=== PATIENT | female | born 1950 | race Caucasian/White ===

== ENCOUNTER 2018-07-23 16:58 | Inpatient (IN) ==
[2018-07-23] MEDS ORDERED: ACETAMINOPHEN 325 MG TABLET PO ONE (17:26)
[2018-07-23] MEDS ORDERED: NORMAL SALINE 1,000 ML IV ONE (17:26)
[2018-07-23 17:47] LABS: Hematocrit 38.8 % (37.0-47.0); Hemoglobin 12.1 gm/dL (12.5-16.0); Mean Cell Volume 92.4 fl (78-100); Mean Corpuscular Hemoglobin 28.8 pg (27-31); Mean Corpuscular Hgb Conc 31.2 g/dl (32-36); Mean Platelet Volume 10.9 fl (8-12.5); Neutrophil % 94.3 % (42-75.0); Platelet Count 289 K/mm3 (150-450); White Blood Count 13.8 K/mm3 (4.0-10.5)
[2018-07-23 18:09] LABS: Albumin * 2.5 gm/dl (3.4-5.0); Anion Gap 18.2 mmol/L (6.8-13.8); Bilirubin, Total 0.9 mg/dL (0.0-1.1); Ca. Corrected For Albumin 10.5 mg/dL (8.4-10.2); Calcium * 9.6 mg/dL (7.9-10.9); Carbon Dioxide 19.4 mmol/L (24-32.6); Potassium 4.6 mmol/L (3.4-4.6); Total Protein 7.9 gm/dL (6.2-8.2)
[2018-07-23 18:22] LABS: CRP 34.7 mg/dL (0.0-0.9)
[2018-07-23] MEDS ORDERED: cefTRIAXone SODIUM 1,000 MG/100 ML BAG IV ONE (18:36)
--- NOTE | 2018-07-23 19:12 | ERNOTE ---
Neuro HPI ER Record Date of Service: 07/23/18 Presenting Symptoms: confusion, other - alterred mental status Time Seen by Provider: 07/23/18 17:04 Immunizations: IMMUNIZATION HX Immunizations Up to Date Yes History of Influenza Vaccine Yes Hx Pneumococcal Vaccination No Allergies/Adverse Reactions: Allergies Allergy/AdvReac Type Severity Reaction Status Date / Time hydroxyzine HCl [From Atarax] AdvReac Severe weakness Verified 07/23/18 17:04 bupropion HCl AdvReac Intermediate unknown Verified 07/23/18 17:04 [From Wellbutrin] lamotrigine [From Lamictal] AdvReac Intermediate unknown Verified 07/23/18 17:04 latex AdvReac Intermediate Itching Verified 07/23/18 17:04 diphenhydramine HCl AdvReac drowsy Verified 07/23/18 17:04 [From Benadryl] Home Medications: HOME MEDICATIONS acetaminophen 325 mg tablet See Rx Instructions PO .COMPLEX 10/03/17 [Last Taken Unknown] ascorbic acid (vitamin C) 500 mg tablet 500 mg PO .COMPLEX 10/03/17 [Last Taken Unknown] blood sugar diagnostic strips See Dose Instructions .ROUTE .MEDSUPPLY #20 ea 10/03/17 [Last Taken Unknown] cholecalciferol (vitamin D3) 5,000 unit capsule 5,000 unit PO BID cap 10/03/17 [Last Taken Unknown] duloxetine 30 mg capsule,delayed release See Rx Instructions PO .COMPLEX 10/03/17 [Last Taken Unknown] fenofibrate 160 mg tablet 160 mg PO DAILY 10/03/17 [Last Taken Unknown] fluconazole 200 mg tablet 200 mg PO .COMPLEX 10/03/17 [Last Taken Unknown] insulin aspart U-100 100 unit/mL subcutaneous solution See Rx Instructions SUB-Q .COMPLEX 10/03/17 [Last Taken Unknown] insulin glargine (U-100) 100 unit/mL (3 mL) subcutaneous pen See Rx Instructions SUB-Q .COMPLEX 10/03/17 [Last Taken Unknown] levothyroxine 50 mcg tablet 50 mcg PO DAILY 10/03/17 [Last Taken Unknown] nutritional therapy glucose intolerance,lactose-free,soy oral liquid See Rx Instructions PO .COMPLEX 10/03/17 [Last Taken Unknown] olanzapine 7.5 mg tablet 7.5 mg PO .COMPLEX 10/03/17 [Last Taken Unknown] omeprazole 20 mg capsule,delayed release 20 mg PO DAILY 10/03/17 [Last Taken Unknown] oxybutynin chloride ER 5 mg tablet,extended release 24 hr 5 mg PO DAILY 10/03/17 [Last Taken Unknown] simvastatin 20 mg tablet 20 mg PO QPM 10/03/17 [Last Taken Unknown] topiramate 50 mg tablet 50 mg PO BID 10/03/17 [Last Taken Unknown] levofloxacin 500 mg tablet 500 mg PO DAILY #10 tab 01/17/18 [Last Taken Unknown] sulfamethoxazole 800 mg-trimethoprim 160 mg tablet 1 tab PO BID #20 tab 03/12/18 [Last Taken Unknown] losartan 25 mg tablet 25 mg PO DAILY #30 tab 05/15/18 [Last Taken Unknown] potassium chloride ER 20 mEq tablet,extended release 20 meq PO DAILY #30 tab 07/02/18 [Last Taken Unknown] - History of Present Illness Narrative: patient presents to ed with c/o of fever and alterred mental status, past hx of dementia, and uti infectiion Onset: cannot confirm onset Severity: moderate - Character of Deficits New weakness: Present: general (diffuse) Additional Deficits: Present: weakness Baseline Cognition: Present: alert but disoriented to time Baseline Gait: Present: walks w/o assistance Associated Symptoms: Reports: fever/chills, trouble concentrating Prior Treament: Reports: recently seen, treated by physician, similar symptoms before Review of Systems - Review of Systems Constitutional: Present: See HPI, fever, weakness, fatigue, malaise EYE: Present: no symptoms reported ENT: Present: no symptoms reported Respiratory: Present: cough, wheezing Cardiology: Present: no symptoms reported Gastrointestinal/Abdominal: Present: no symptoms reported Genitourinary: Present: no symptoms reported Musculoskeletal: Present: no symptoms reported Skin: Present: no symptoms reported Neurological: Present: no symptoms reported Endocrine: Present: no symptoms reported Hematologic/Lymphatic: Present: no symptoms reported Psych: Present: no symptoms reported All Other Systems: All systems neg except as marked Medical History (Updated 07/14/18 @ 18:55 by Ulisses Capellan DO) Foot deformity, bilateral (Chronic) Diabetic neuropathy (Chronic) 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 Smoking Status Former smoker Abuse History No History of abuse Psych History Hx of Anxiety,Hx of Depression (Last Updated 07/14/18 @ 18:56 by Ulisses Capellan DO) No Social History Section defined Physical Exam - Physical Exam General Appearance: Present: mild distress, anxious, lethargic Head Exam: Present: normal inspection, no evidence of injury Eye Exam: Normal inspection: bilateral, PERRL: bilateral, EOMI: bilateral Ears, Nose, Throat: Present: normal ENT inspection, normal pharynx Neck: Present: normal inspection, nontender Respiratory: Present: no respiratory distress, normal breath sounds, no accessory muscle use, chest nontender, rales, rhonchi, stridor Cardiovascular/Chest: Present: regular rate, rhythm, no murmur, normal peripheral pulses Gastrointestinal/Abdominal: Present: normal bowel sounds, nontender, nondistended, soft, no organomegaly Back Exam: Present: normal inspection, normal range of motion, no CVA tenderness, no vertebral tenderness Extremity Exam: Present: normal inspection, non-tender, normal range of motion, no edema Neurological Exam: Present: disoriented to person, disoriented to time, disoriented to place, disoriented to situation Skin Exam: Present: normal color, warm/dry Lymphatic Exam: Present: no adenopathy Progress - Date and Time Seen: Date and Time: 07/23/18 19:34 patient unchanged, case discussed with dr collins, to be admitted with alterred mental status and fever - Results and Orders Patient's Lab Results:: I have reviewed the patient's lab results. - Vital Signs Patient's Vital Signs:: I have reviewed the patient's vital signs. Vital Signs: Vital Signs 07/23/18 17:00 07/23/18 18:51 Temperature 38.1 C H 38.3 C H Pulse Rate 105 H 112 H Respiratory Rate 24 H 18 Blood Pressure 105/69 108/53 O2 Sat by Pulse Oximetry 99 98 - X-Ray X-Ray #1 X-Ray: chest Interpretation: Interp. by me - possible lower left lob pneumonia - Progress/Reassessment Chief Complaint: Altered Mental Status Progress:: Unchanged - Transfer of Care Expected Disposition: Admit Plan - Plan Plan: to admit to hospital Departure Clinical Impression: UTI (urinary tract infection), Altered mental status, unspecified - Departure Disposition: Still a patient Condition: Serious Referrals: Ulisses Capellan DO [Primary Care Provider] -
[2018-07-23] MEDS ORDERED: CIPROFLOXACIN IN 5 % DEXTROSE 400 MG/200 ML BAG IV SCH (19:45)
[2018-07-23] MEDS: CIPROFLOXACIN IN 5 % DEXTROSE 400 MG/200 ML BAG IV SCH (20:00)
[2018-07-23 20:10] LABS: Urine Bilirubin Negative (NEGATIVE); Urine Blood 250 /ul (NEGATIVE); Urine Ketone Negative (NEGATIVE); Urine Nitrite Negative (NEGATIVE); Urine Protein >=300 mg/dL (NEGATIVE); Urine Specific Gravity 1.015 SP.GR. (1.005-1.010); Urine Urobilinogen Normal (NORMAL); Urine pH 6.5 pH (5.0-7.0)
[2018-07-23 20:21] LABS: Urine Appearance Clear (CLEAR); Urine Bacteria 2+; Urine Color Yellow
[2018-07-23 20:22] LABS: Urine Mucus Moderate - 2+
[2018-07-23] MEDS: NORMAL SALINE 1,000 ML IV PRN (21:54)
--- NOTE | 2018-07-24 00:58 | HP ---
Chief Complaint - Chief Complaint Date of Service: 07/24/18 Time of Service: 00:34 Chief Complaint: Altered mental status, concern for UTI History of Present Illness: 67-year-old female with history of diabetes and end-stage kidney fa shanthi presented to the ER following 1 day of altered mental status from her nursing facility. Patient has history of dementia, nursing staff concerned that she was more confused than normal. In the ER she was found to have an elevated white count at 13.8 with a left shift. Her GFR was 13 with a creatinine of 3.78. GFR significantly decreased from previous labs done in June (he 3 weeks earlier). It was thought that she had a UTI, culture pending. UA showed positive blood, positive leukocyte esterase, positive your bacteria. Negative nitrite. She was started on Rocephin and Cipro and transferred to the floor under observation. Her vital signs are stable and she was afebrile. Patient unable to provide any information regarding her illness at this time as she is ANO x1 but clearly confused there is no family around to discuss current clinical picture. 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 Smoking Status Former smoker Have you smoked in the past 12 No months Abuse History No History of abuse Psych History Hx of Anxiety,Hx of Depression (Last Updated 07/14/18 @ 18:56 by Ulisses Capellan DO) No Social History Section defined Review Of Systems (GEN) - Review of Systems Additional Comments: Unable to obtain due to altered mental status and dementia. Immunizations: IMMUNIZATION HX Immunizations Up to Date Yes History of Influenza Vaccine Yes Hx Pneumococcal Vaccination No Allergies/Adverse Reactions: Allergies Allergy/AdvReac Type Severity Reaction Status Date / Time hydroxyzine HCl [From Atarax] AdvReac Severe weakness Verified 07/23/18 17:04 bupropion HCl AdvReac Intermediate unknown Verified 07/23/18 17:04 [From Wellbutrin] lamotrigine [From Lamictal] AdvReac Intermediate unknown Verified 07/23/18 17:04 latex AdvReac Intermediate Itching Verified 07/23/18 17:04 diphenhydramine HCl AdvReac drowsy Verified 07/23/18 17:04 [From Benadryl] Home Medications: HOME MEDICATIONS acetaminophen 325 mg tablet See Rx Instructions PO .COMPLEX 10/03/17 [Last Taken Unknown] ascorbic acid (vitamin C) 500 mg tablet 500 mg PO .COMPLEX 10/03/17 [Last Taken Unknown] blood sugar diagnostic strips See Dose Instructions .ROUTE .MEDSUPPLY #20 ea 10/03/17 [Last Taken Unknown] cholecalciferol (vitamin D3) 5,000 unit capsule 5,000 unit PO BID cap 10/03/17 [Last Taken Unknown] duloxetine 30 mg capsule,delayed release See Rx Instructions PO .COMPLEX 10/03/17 [Last Taken Unknown] fenofibrate 160 mg tablet 160 mg PO DAILY 10/03/17 [Last Taken Unknown] fluconazole 200 mg tablet 200 mg PO .COMPLEX 10/03/17 [Last Taken Unknown] insulin aspart U-100 100 unit/mL subcutaneous solution See Rx Instructions SUB-Q .COMPLEX 10/03/17 [Last Taken Unknown] insulin glargine (U-100) 100 unit/mL (3 mL) subcutaneous pen See Rx Instructions SUB-Q .COMPLEX 10/03/17 [Last Taken Unknown] levothyroxine 50 mcg tablet 50 mcg PO DAILY 10/03/17 [Last Taken Unknown] nutritional therapy glucose intolerance,lactose-free,soy oral liquid See Rx Instructions PO .COMPLEX 10/03/17 [Last Taken Unknown] olanzapine 7.5 mg tablet 7.5 mg PO .COMPLEX 10/03/17 [Last Taken Unknown] omeprazole 20 mg capsule,delayed release 20 mg PO DAILY 10/03/17 [Last Taken Unknown] oxybutynin chloride ER 5 mg tablet,extended release 24 hr 5 mg PO DAILY 10/03/17 [Last Taken Unknown] simvastatin 20 mg tablet 20 mg PO QPM 10/03/17 [Last Taken Unknown] topiramate 50 mg tablet 50 mg PO BID 10/03/17 [Last Taken Unknown] levofloxacin 500 mg tablet 500 mg PO DAILY #10 tab 01/17/18 [Last Taken Unknown] losartan 25 mg tablet 25 mg PO DAILY #30 tab 05/15/18 [Last Taken Unknown] potassium chloride ER 20 mEq tablet,extended release 20 meq PO DAILY #30 tab 07/02/18 [Last Taken Unknown] Exam - Exam Vital Signs: Vital Signs - Last Taken Temp 36.2 C 07/23/18 21:55 Pulse 96 07/23/18 21:55 Resp 18 07/23/18 21:55 BP 116/61 07/23/18 21:55 Pulse Ox 97 07/23/18 21:55 Constitutional: Present: Somnolent, Obese. Absent: Alert, Oriented x3 Respiratory: Present: lungs clear, normal breath sounds Cardiovascular/Chest: Present: regular rate, rhythm. Absent: no murmur Abdomen: Present: soft, nontender Skin Exam: Present: other - 2 large decubitus ulcers: One just left of the gluteal cleft roughly 5 cm in length, 2 cm diameter, and 2 cm deep. Other posterior left thigh. Both in different stages of healing. Purulent drainage seen from the gluteal cleft ulcer. Appearance: Present: impaired insight, impaired recent memory Diagnostic Studies: Abnormal Lab Results 07/23/18 07/23/18 07/23/18 Range/Units 17:45 17:45 17:45 WBC 13.8 H (4.0-10.5) K/mm3 Hgb 12.1 L (12.5-16.0) gm/dL MCHC 31.2 L (32-36) g/dl Immature Gran % (Auto) 0.50 H (0.001-0.429) % Immature Gran # (Auto) 0.07 H (0.000-0.0310) K/mm3 Neutrophils % 94.3 H (42-75.0) % Lymphocytes % 1.7 L (20-51) % Neutrophils # 13.0 H (1.3-6.0) K/mm3 Lymphocytes # 0.23 L (1.5-3.5) k/mm3 Carbon Dioxide 19.4 L (24-32.6) mmol/L Anion Gap 18.2 H (6.8-13.8) mmol/L BUN 72 H D (3-23) mg/dL Creatinine 3.78 H D (0.4-1.4) mg/dL Est GFR (Non-Af Amer) 13 L D (60-130) mL/min Random Glucose 187 H (70-110) mg/dL Calcium Adj for Albumin 10.5 H (8.4-10.2) mg/dL ALT 17 L (19-67) U/L C-Reactive Prot, Quant 34.7 H (0.0-0.9) mg/dL Albumin 2.5 L (3.4-5.0) gm/dl Procalcitonin 7.09 H (0.05-0.50) ng/mL Urine Protein (NEGATIVE) mg/dL Urine Blood (NEGATIVE) /ul Prot Sulfosalicylic Acd (0) mg/dL Ur Leukocyte Esterase (NEGATIVE) /ul Urine RBC (0-5) /hpf Urine WBC (0-5) /hpf Urine Bacteria (NONE) Urine Mucus (NONE) 07/23/18 Range/Units 20:01 WBC (4.0-10.5) K/mm3 Hgb (12.5-16.0) gm/dL MCHC (32-36) g/dl Immature Gran % (Auto) (0.001-0.429) % Immature Gran # (Auto) (0.000-0.0310) K/mm3 Neutrophils % (42-75.0) % Lymphocytes % (20-51) % Neutrophils # (1.3-6.0) K/mm3 Lymphocytes # (1.5-3.5) k/mm3 Carbon Dioxide (24-32.6) mmol/L Anion Gap (6.8-13.8) mmol/L BUN (3-23) mg/dL Creatinine (0.4-1.4) mg/dL Est GFR (Non-Af Amer) (60-130) mL/min Random Glucose (70-110) mg/dL Calcium Adj for Albumin (8.4-10.2) mg/dL ALT (19-67) U/L C-Reactive Prot, Quant (0.0-0.9) mg/dL Albumin (3.4-5.0) gm/dl Procalcitonin (0.05-0.50) ng/mL Urine Protein >=300 H (NEGATIVE) mg/dL Urine Blood 250 H (NEGATIVE) /ul Prot Sulfosalicylic Acd 4+ H (0) mg/dL Ur Leukocyte Esterase 100 H (NEGATIVE) /ul Urine RBC 10-25 H (0-5) /hpf Urine WBC 5-10 H (0-5) /hpf Urine Bacteria 2+ H (NONE) Urine Mucus Moderate - 2+ H (NONE) Laboratory Results WBC 13.8 K/mm3 (4.0-10.5) H 07/23/18 17:45 RBC 4.20 M/mm3 (4.2-5.4) 07/23/18 17:45 Hgb 12.1 gm/dL (12.5-16.0) L 07/23/18 17:45 Hct 38.8 % (37.0-47.0) 07/23/18 17:45 MCV 92.4 fl (78-100) 07/23/18 17:45 MCH 28.8 pg (27-31) 07/23/18 17:45 MCHC 31.2 g/dl (32-36) L 07/23/18 17:45 RDW 14.0 % (11.5-14.0) 07/23/18 17:45 Plt Count 289 K/mm3 (150-450) 07/23/18 17:45 MPV 10.9 fl (8-12.5) 07/23/18 17:45 Immature Gran % (Auto) 0.50 % (0.001-0.429) H 07/23/18 17:45 Immature Gran # (Auto) 0.07 K/mm3 (0.000-0.0310) H 07/23/18 17:45 94.3 % (42-75.0) H 07/23/18 17:45 1.7 % (20-51) L 07/23/18 17:45 3.1 % (0.0-9) 07/23/18 17:45 0.1 % (0.0-3.0) 07/23/18 17:45 0.3 % (0.0-1.0) 07/23/18 17:45 Nucleated RBC % 0.0 k/mm3 (0-1) 07/23/18 17:45 13.0 K/mm3 (1.3-6.0) H 07/23/18 17:45 0.23 k/mm3 (1.5-3.5) L 07/23/18 17:45 0.4 k/mm3 (0.0-1.0) 07/23/18 17:45 0.0 k/mm3 (0.0-0.7) 07/23/18 17:45 Absolute Basophils 0.0 k/mm3 (0.0-0.1) 07/23/18 17:45 Sodium 134 mmol/L (132-142) 07/23/18 17:45 135 mmol/L (130-142) 07/23/18 17:45 Potassium 4.6 mmol/L (3.4-4.6) D 07/23/18 17:45 Chloride 101 mmol/L (97-106) 07/23/18 17:45 Carbon Dioxide 19.4 mmol/L (24-32.6) L 07/23/18 17:45 18.2 mmol/L (6.8-13.8) H 07/23/18 17:45 BUN 72 mg/dL (3-23) H D 07/23/18 17:45 3.78 mg/dL (0.4-1.4) H D 07/23/18 17:45 Est GFR (Non-Af Amer) 13 mL/min (60-130) L D 07/23/18 17:45 19.0 (9.0-21.6) 07/23/18 17:45 187 mg/dL (70-110) H 07/23/18 17:45 1.3 mmol/L (0.4-2.0) 07/23/18 17:45 Calcium 9.6 mg/dL (7.9-10.9) 07/23/18 17:45 Calcium Adj for Albumin 10.5 mg/dL (8.4-10.2) H 07/23/18 17:45 0.9 mg/dL (0.0-1.1) 07/23/18 17:45 AST 15 U/L (0-48) 07/23/18 17:45 ALT 17 U/L (19-67) L 07/23/18 17:45 84 U/L (50-170) 07/23/18 17:45 C-Reactive Prot, Quant 34.7 mg/dL (0.0-0.9) H 07/23/18 17:45 7.9 gm/dL (6.2-8.2) 07/23/18 17:45 2.5 gm/dl (3.4-5.0) L 07/23/18 17:45 7.09 ng/mL (0.05-0.50) H 07/23/18 17:45 Yellow 07/23/18 20:01 Clear (CLEAR) 07/23/18 20:01 6.5 pH (5.0-7.0) 07/23/18 20:01 Ur Specific [place] 1.015 SP.GR. (1.005-1.010) 07/23/18 20:01 >=300 mg/dL (NEGATIVE) H 07/23/18 20:01 Negative mg/dL (NEGATIVE) 07/23/18 20:01 Negative mg/dL (NEGATIVE) 07/23/18 20:01 250 /ul (NEGATIVE) H 07/23/18 20:01 Negative (NEGATIVE) 07/23/18 20:01 Negative mg/dl (NEGATIVE) 07/23/18 20:01 Prot Sulfosalicylic Acd 4+ mg/dL (0) H 07/23/18 20:01 Normal EU/dl (NORMAL) 07/23/18 20:01 Ur Leukocyte Esterase 100 /ul (NEGATIVE) H 07/23/18 20:01 10-25 /hpf (0-5) H 07/23/18 20:01 5-10 /hpf (0-5) H 07/23/18 20:01 Ur Epithelial Cells 0-5 /hpf (0-5) 07/23/18 20:01 2+ (NONE) H 07/23/18 20:01 Moderate - 2+ (NONE) H 07/23/18 20:01 Culture to follow 07/23/18 20:01 Assessment/Plan - Narrative Narrative: 67-year-old female presented with altered mental status. History of dementia. Prior history and current clinical picture hard to determine due to no family or caregivers around. Patient does have an elevated white count with a left shift. Patient has elevated procalcitonin. She definitely has an infection somewhere but does not appear to be septic as she is afebrile and her use vital signs are stable. Significant decrease in kidney function over the last 3 weeks. Urine currently sterile, no preliminary growth seen. Concern for skin ulcers as the more likely cause of her infection. Will stop the Cipro and add vancomycin, to be pharmacy dosed due to kidney function. Currently providing gentle fluid resuscitation in the hopes to get an improvement in GFR. Patient is a poorly controlled diabetic and may need dialysis but she does not wish this at this time. Will have family over to discuss this as a possibility but hopefully her kidney function will improve and we will have to go this r oute. We will monitor vital signs, repeat CBC in a.m. Will start on a consistent carb diet. Will order SCDs for DVT prophylaxis. - Assessment/Plan (1) Altered mental status, unspecified Problem: Acute (2) Diabetic neuropathy Problem: Chronic Qualifiers: Diabetes mellitus type: type 2 Diabetes mellitus complication detail: diabetic polyneuropathy Qualified Code(s): E11.42 - Type 2 diabetes mellitus with diabetic polyneuropathy (3) Stage II pressure ulcer of sacral region Problem: Chronic (4) Diabetes Problem: Chronic Qualifiers: Diabetes mellitus type: type 2 Diabetes mellitus skilled nursing insulin use: with skilled nursing use Diabetes mellitus complication status: with skin complications Diabetes mellitus complication detail: with other skin ulcer Qualified Code(s): E11.622 - Type 2 diabetes mellitus with other skin ulcer; Z79.4 - intermediate frame tender (current) use of insulin (5) UTI (urinary tract infection) Problem: Suspected
[2018-07-24] MEDS: NORMAL SALINE 1,000 ML IV PRN ×3 (06:53→23:58)
[2018-07-24] MEDS: CIPROFLOXACIN IN 5 % DEXTROSE 400 MG/200 ML BAG IV SCH (08:54)
[2018-07-24 10:11] LABS: Hemoglobin 10.7 gm/dL (12.5-16.0); Mean Cell Volume 91.9 fl (78-100); Mean Corpuscular Hemoglobin 28.9 pg (27-31); Mean Corpuscular Hgb Conc 31.5 g/dl (32-36); Neutrophil # 7.8 K/mm3 (1.3-6.0); Neutrophil % 88.8 % (42-75.0); Platelet Count 251 K/mm3 (150-450); White Blood Count 8.7 K/mm3 (4.0-10.5)
[2018-07-24 10:12] LABS: Anion Gap 18.5 mmol/L (6.8-13.8); BUN/Creatinine Ratio 18.6 (9.0-21.6); Calcium * 8.8 mg/dL (7.9-10.9); Carbon Dioxide 16.1 mmol/L (24-32.6); Estimated Creat Clear 10.3; Potassium 4.6 mmol/L (3.4-4.6)
[2018-07-24] MEDS: WATER IV SCH ×2 (12:55)
[2018-07-24] MEDS: VANCOMYCIN HCL IV SCH ×2 (12:55)
[2018-07-24] MEDS: DEXTROSE 5% IV SCH ×2 (12:55)
[2018-07-24] MEDS: DULoxetine HCL 30 MG CAPSULE.SA PO SCH (13:01)
[2018-07-24] MEDS: OLANZapine 5 MG TABLET PO SCH (13:01)
[2018-07-24] MEDS: INSULIN GLARGINE,HUM.REC.ANLOG 100 UNITS/ML VIAL SC SCH ×2 (13:02→20:53)
[2018-07-24] MEDS: INSULIN LISPRO 100 UNITS/ML VIAL SC SCH ×2 (17:22→20:52)
[2018-07-24 18:46] LABS: Anion Gap 17.2 mmol/L (6.8-13.8); BUN/Creatinine Ratio 17.7 (9.0-21.6); Calcium * 9.1 mg/dL (7.9-10.9); Carbon Dioxide 17.9 mmol/L (24-32.6); Estimated Creat Clear 10.9; Potassium 4.1 mmol/L (3.4-4.6)
[2018-07-24] MEDS: OXYBUTYNIN CHLORIDE 5 MG TABLET PO SCH (20:56)
[2018-07-24] MEDS: TOPIRAMATE 50 MG TABLET PO SCH (20:57)
[2018-07-25 05:40] LABS: Anion Gap 18.7 mmol/L (6.8-13.8); BUN/Creatinine Ratio 18.2 (9.0-21.6); Calcium * 9.2 mg/dL (7.9-10.9); Carbon Dioxide 16.3 mmol/L (24-32.6); Estimated Creat Clear 11.8
[2018-07-25] MEDS: PANTOPRAZOLE SODIUM 20 MG TABLET.DR PO SCH (08:16)
[2018-07-25] MEDS: OXYBUTYNIN CHLORIDE 5 MG TABLET PO SCH ×2 (08:16→20:53)
[2018-07-25] MEDS: LEVOTHYROXINE SODIUM 50 MCG TABLET PO SCH (08:16)
[2018-07-25] MEDS: TOPIRAMATE 50 MG TABLET PO SCH ×2 (08:16→20:54)
[2018-07-25] MEDS: LOSARTAN POTASSIUM 50 MG TABLET PO SCH (08:16)
[2018-07-25] MEDS: INSULIN LISPRO 100 UNITS/ML VIAL SC SCH ×4 (08:28→20:50)
[2018-07-25] MEDS: INSULIN GLARGINE,HUM.REC.ANLOG 100 UNITS/ML VIAL SC SCH ×2 (08:31→20:52)
[2018-07-25] MEDS: OLANZapine 5 MG TABLET PO SCH (08:50)
[2018-07-25] MEDS: DULoxetine HCL 30 MG CAPSULE.SA PO SCH (08:50)
[2018-07-25] MEDS: NORMAL SALINE 1,000 ML IV PRN ×2 (09:03→17:24)
[2018-07-25] MEDS: WATER IV SCH ×2 (11:59)
[2018-07-25] MEDS: DEXTROSE 5% IV SCH ×2 (11:59)
[2018-07-25] MEDS: VANCOMYCIN HCL IV SCH ×2 (11:59)
--- NOTE | 2018-07-25 12:59 | PN ---
Subjective - Date and Time Seen Date: 07/25/18 Time: 12:49 Subjective Narrative: Patient much more alert oriented today. Currently sitting up in a chair and is comfortable. She denies any pain or acute events overnight. Her vital signs are stable and she is afebrile. Objective - Review of Systems Generalized/Overall Review: Denies: Chills, Fever EENTM: Reports: No Symptoms Reported Respiratory: Denies: Cough, Shortness of Breath Cardiac: Denies: Chest Pain, Edema, Palpitations Abdominal: Denies: Nausea, Vomiting, Abdominal Pain Genitourinary Symptoms: Denies: Burning, Itching, Urgency, Frequency Musculoskeletal Complaints: Reports: No Symptoms Reported Neurological: Reports: No Symptoms Reported Skin: Reports: Other - Gluteal ulcers with drainage - Vitals Vitals: Last Vital Signs Temp 36.1 C 07/25/18 10:38 Pulse 91 07/25/18 10:38 Resp 18 07/25/18 10:38 BP 142/87 07/25/18 10:38 Pulse Ox 97 07/25/18 10:38 - Abnormal Lab Findings Abnormal Lab Findings: Abnormal Lab Results 07/24/18 07/25/18 Range/Units 18:36 05:20 Chloride 107 H (97-106) mmol/L Carbon Dioxide 17.9 L 16.3 L (24-32.6) mmol/L Anion Gap 17.2 H 18.7 H (6.8-13.8) mmol/L BUN 62 H 59 H (3-23) mg/dL Creatinine 3.51 H 3.24 H (0.4-1.4) mg/dL Est GFR (Non-Af Amer) 14 L 15 L (60-130) mL/min Random Glucose 258 H 179 H D (70-110) mg/dL - Exam Constitutional: Present: Alert, Oriented x3, Cooperative, Morbidly obese ENT Exam: Present: hearing grossly normal. Absent: nasal drainage Neck: Present: non-tender, supple Respiratory: Present: lungs clear, normal breath sounds Cardiovascular/Chest: Present: normal peripheral pulses, regular rate, rhythm, no murmur Abdomen: Present: Normal bowel sounds, soft, nontender /Rectal: Present: Exam deferred Skin Exam: Present: other - 2 large gluteal ulcers in the gluteal region, covered. Bandages clean dry and intact Neurologic: Present: alert, normal mood/affect, oriented x 3 Appearance: Present: impaired insight, impaired recent memory Eye contact: Present: cooperative, good eye contact, normal speech Thoughts: Present: normal thought pattern, normal mood /affect Assessment/Plan Plan Narrative: Decubitus ulcers currently being treated with vancomycin. Being monitored by pharmacy, awaiting bank trough. No changes to antibiotic regimen at this time. Wound care consulted. Blood sugars are getting better controlled most recent 177. Will increase long- acting in regards to how much sliding scale was given over the last 24 hours. Continue to monitor sugars before meals at bedtime. Recheck kidney function as it is slowly improving even with vancomycin use. GFR is gone from 13 to 15. Creatinine is also coming down. Hopefully patient continues to improve with gentle fluid resuscitation and dialysis no longer needed to be considered. Have discussed this with her mom, no definitive treatment options have been decided upon. If her GFR does not return to normal then she likely will need to be referred to nephrology for consult and possible dialysis port placement. Dementia appears to be stable, patient is alert and oriented x3 today. Patient in a good mood and easy to talk to continue consistent carb diet. SCDs for DVT prophylaxis. The nurse to call any questions or concerns. 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 Problem: Chronic (2) Altered mental status, unspecified Problem: Resolved (3) Diabetic neuropathy Problem: Chronic Qualifiers: Diabetes mellitus type: type 2 Diabetes mellitus complication detail: diabetic polyneuropathy Qualified Code(s): E11.42 - Type 2 diabetes mellitus with diabetic polyneuropathy (4) Diabetes Problem: Chronic Qualifiers: Diabetes mellitus type: type 2 Diabetes mellitus mcc insulin use: with mcc use Diabetes mellitus complication status: with skin complications Diabetes mellitus complication detail: with other skin ulcer Qualified Code(s): E11.622 - Type 2 diabetes mellitus with other skin ulcer; Z79.4 - 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
--- NOTE | 2018-07-25 14:04 | CONS ---
[facility] - General Date of Service: 07/25/18 Source: patient - History of Present Illness Initial Comments: Patient is a 67 year old female, recently admitted to the hospital regarding altered mental status. After admission it was noted that the patient has an ulcer on her sacrum. The patient states that this is a long-standing issue, and has been present for approximately 2 years. She [facility], and in October 2016, it was documented that the sacral ulcer had completely healed. Patient states they are using a collagen and medi-honey dressing on the area. It is unclear if the area is painful. The patient has a rather good historian at this time. Her medical history includes diabetes, hypertension, generalized anxiety disorder, GERD, hyperlipidemia, hypothyroidism, major depression with psychotic features, UTI and dementia. Timing/Duration: constant Allergies/Adverse Reactions: Allergies hydroxyzine HCl [From Atarax] Adverse Reaction (Severe, Verified 07/23/18 17:04) weakness bupropion HCl [From Wellbutrin] Adverse Reaction (Intermediate, Verified 07/23/18 17:04) unknown lamotrigine [From Lamictal] Adverse Reaction (Intermediate, Verified 07/23/18 17:04) unknown latex Adverse Reaction (Intermediate, Verified 07/23/18 17:04) Itching causes blisters and excoriation of skin diphenhydramine HCl [From Benadryl] Adverse Reaction (Verified 07/23/18 17:04) drowsy Does not like to take because it makes her drowsy. Home Medications: Home Medications Medication Instructions Recorded Last Taken acetaminophen 325 mg tablet See Rx Instructions PO .COMPLEX 10/03/17 Unknown ascorbic acid (vitamin C) 500 mg 500 mg PO .COMPLEX 10/03/17 Unknown tablet blood sugar diagnostic strips See Dose Instructions .ROUTE 10/03/17 Unknown .MEDSUPPLY #20 ea cholecalciferol (vitamin D3) 5,000 5,000 unit PO BID cap 10/03/17 Unknown unit capsule duloxetine 30 mg capsule,delayed See Rx Instructions PO .COMPLEX 10/03/17 Unknown release fenofibrate 160 mg tablet 160 mg PO DAILY 10/03/17 Unknown fluconazole 200 mg tablet 200 mg PO .COMPLEX 10/03/17 Unknown insulin aspart U-100 100 unit/mL See Rx Instructions SUB-Q .COMPLEX 10/03/17 Unknown subcutaneous solution insulin glargine (U-100) 100 See Rx Instructions SUB-Q .COMPLEX 10/03/17 Unknown unit/mL (3 mL) subcutaneous pen levothyroxine 50 mcg tablet 50 mcg PO DAILY 10/03/17 Unknown nutritional therapy glucose See Rx Instructions PO .COMPLEX 10/03/17 Unknown intolerance,lactose-free,soy oral liquid olanzapine 7.5 mg tablet 7.5 mg PO .COMPLEX 10/03/17 Unknown omeprazole 20 mg capsule,delayed 20 mg PO DAILY 10/03/17 Unknown release oxybutynin chloride ER 5 mg 5 mg PO DAILY 10/03/17 Unknown tablet,extended release 24 hr simvastatin 20 mg tablet 20 mg PO QPM 10/03/17 Unknown topiramate 50 mg tablet 50 mg PO BID 10/03/17 Unknown levofloxacin 500 mg tablet 500 mg PO DAILY #10 tab 01/17/18 Unknown losartan 25 mg tablet 25 mg PO DAILY #30 tab 05/15/18 Unknown potassium chloride ER 20 mEq 20 meq PO DAILY #30 tab 07/02/18 Unknown tablet,extended release Clindamycin HCl [Cleocin HCl] 300 mg PO TID #9 cap 07/29/18 Unknown Procedures AFTER-CATAR DISCISSION (05/31/09) Endoscopic polypectomy of large intestine (02/19/07) Esophagogastroduodenoscopy [EGD] with closed biopsy (02/19/07) Injection of steroid (12/24/01) Injection of therapeutic substance into joint or ligament (12/24/01) Insertion of intraocular lens prosthesis at time of cataract extraction, one- stage (10/08/06) Measurement of systemic arterial blood gases (09/26/12) Phacoemulsification and aspiration of cataract (10/08/06) Medications - Medications Current Medications: Current Medications Duloxetine HCl (Cymbalta) 90 mg PO DAILY [facility] Stop: 08/23/18 12:46 Last Admin: 07/25/18 08:50 Dose: 90 mg Documented by: Ceftriaxone Sodium 1,000 mg/ (Dextrose/Water) 100 mls @ 200 mls/hr IV Q12H [facility]; Protocol Stop: 08/22/18 19:46 Last Admin: 07/25/18 08:15 Dose: 200 mls/hr Documented by: Sodium Chloride (Sodium Chloride 0.9%) 1,000 mls @ 126 mls/hr IV .Q7H57M PRN PRN Reason: HYDRATION Stop: 08/22/18 19:44 Last Admin: 07/25/18 09:03 Dose: 126 mls/hr Documented by: Vancomycin HCl 0.5 gm/ (Dextrose/Water) 100 mls @ 140 mls/hr IV Q24H [facility] Stop: 08/23/18 12:01 Last Admin: 07/25/18 11:59 Dose: 140 mls/hr Documented by: Insulin Human Lispro (Humalog) 0 units SC ACHSINS [facility]; Protocol Stop: 08/23/18 17:01 Last Admin: 07/25/18 11:57 Dose: 14 units Documented by: Levothyroxine Sodium (Synthroid) 50 mcg PO DAILY@0700 [facility] Stop: 08/24/18 07:01 Last Admin: 07/25/18 08:16 Dose: 50 mcg Documented by: Losartan Potassium (Cozaar) 25 mg PO DAILY [facility] Stop: 08/24/18 09:01 Last Admin: 07/25/18 08:16 Dose: 25 mg Documented by: Olanzapine (Zyprexa) 7.5 mg PO DAILY [facility] Stop: 08/23/18 12:46 Last Admin: 07/25/18 08:50 Dose: 7.5 mg Documented by: Oxybutynin Chloride (Ditropan) 2.5 mg PO BID [facility] Stop: 08/23/18 21:01 Last Admin: 07/25/18 08:16 Dose: 2.5 mg Documented by: Pantoprazole Sodium (Protonix) 20 mg PO DAILY@0700 [facility] Stop: 08/24/18 07:01 Last Admin: 07/25/18 08:16 Dose: 20 mg Documented by: Topiramate (Topamax) 50 mg PO BID [facility] Stop: 08/23/18 21:01 Last Admin: 07/25/18 08:16 Dose: 50 mg Documented by: Review of Systems - Review of Systems Generalized/Overall Review: Present: Weakness. Absent: Fever EENTM: Absent: Nose Congestion Respiratory: Present: Shortness of Breath Cardiac: Present: Edema. Absent: Chest Pain Abdominal: Absent: Nausea, Vomiting Musculoskeletal: Present: Back Pain Neurological: Absent: Numbness, Tingling Skin: Present: Lesions Physical Examination - Exam Vital Signs: Vital Signs - Last Taken Temp 36.1 C 07/25/18 10:38 Pulse 91 07/25/18 10:38 Resp 18 07/25/18 10:38 BP 142/87 07/25/18 10:38 Pulse Ox 97 07/25/18 10:38 O2 Oxygen Delivery Method Room Air Comprehensive Narative: 08/05/18 13:04 Patient is a Tammy lift, as she is unable to transfer her self. Constitutional: Present: Alert, No distress, Morbidly obese ENT Exam: Present: hearing grossly normal Skin Exam: Present: normal color, warm/dry, other - There is an approximately 2 cm in circumference area on the sacrum that is open. Large amount of red granulation tissue no necrotic tissue is noted. No erythema. Mild drainage. - Results and Findings: Lab/Microbiology results last 24 hrs: Abnormal/Pending Laboratory Last 24 HRS 07/25/18 07/24/18 05:20 18:36 Chloride 107 H Carbon Dioxide 16.3 L 17.9 L Anion Gap 18.7 H 17.2 H BUN 59 H 62 H Creatinine 3.24 H 3.51 H Est GFR (Non-Af Amer) 15 L 14 L Random Glucose 179 H D 258 H Culture 07/23/18 20:01 Urine Culture - Preliminary Urine,Catheterized Ruling Out Pathogen 07/24/18 05:20 - Final Nares MRSA Negative 07/23/18 18:55 Blood Culture - Preliminary Blood NO GROWTH 24 HOURS 07/23/18 17:45 Blood Culture - Preliminary Blood NO GROWTH 24 HOURS - Assessments/Findings 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 Diagnosis(s): The ulcer appears clean, with minimal necrosis. The periulcer tissue is macerated and reddened. The dressing choice is difficult, as the patient is frequently incontinent. Recommend Aquacel Ag, covered with gauze and secured with medipore tape. This will be changed daily, and as needed due to bowel movements. Wash with soap and water at dressing changes. Continue with excellent off-loading of the area. Problem: Chronic
[2018-07-26] MEDS: NORMAL SALINE 1,000 ML IV PRN ×3 (01:52→19:30)
[2018-07-26 06:26] LABS: Anion Gap 15.5 mmol/L (6.8-13.8); BUN/Creatinine Ratio 19.9 (9.0-21.6); Calcium * 9.4 mg/dL (7.9-10.9); Carbon Dioxide 17.9 mmol/L (24-32.6); Estimated Creat Clear 13.8; Potassium 4.4 mmol/L (3.4-4.6)
[2018-07-26] MEDS: INSULIN LISPRO 100 UNITS/ML VIAL SC SCH ×4 (07:19→21:17)
[2018-07-26] MEDS: PANTOPRAZOLE SODIUM 20 MG TABLET.DR PO SCH (07:19)
[2018-07-26] MEDS: LEVOTHYROXINE SODIUM 50 MCG TABLET PO SCH (07:19)
[2018-07-26] MEDS: LOSARTAN POTASSIUM 50 MG TABLET PO SCH (08:51)
[2018-07-26] MEDS: OLANZapine 5 MG TABLET PO SCH (08:51)
[2018-07-26] MEDS: OXYBUTYNIN CHLORIDE 5 MG TABLET PO SCH ×2 (08:51→21:07)
[2018-07-26] MEDS: TOPIRAMATE 50 MG TABLET PO SCH ×2 (08:51→21:08)
[2018-07-26] MEDS: DULoxetine HCL 30 MG CAPSULE.SA PO SCH (08:51)
[2018-07-26] MEDS: INSULIN GLARGINE,HUM.REC.ANLOG 100 UNITS/ML VIAL SC SCH ×2 (08:51→21:19)
[2018-07-26] MEDS: VANCOMYCIN HCL 500 MG in DEXTROSE 5 % IN WATER 100 ML IV SCH ×2 (11:45)
--- NOTE | 2018-07-26 23:56 | PN ---
Subjective - Date and Time Seen Date: 07/26/18 Time: 12:15 Subjective Narrative: Reports feeling better. No fever, chills, nausea, or vomiting. Mother reports she is still confused at times. Objective - Vitals Vitals: Last Vital Signs Temp 36.7 C 07/26/18 23:00 Pulse 82 07/26/18 23:00 Resp 22 H 07/26/18 23:00 BP 151/81 H 07/26/18 23:00 Pulse Ox 99 07/26/18 23:00 - Abnormal Lab Findings Abnormal Lab Findings: Abnormal Lab Results 07/26/18 Range/Units 06:10 Chloride 108 H (97-106) mmol/L Carbon Dioxide 17.9 L (24-32.6) mmol/L Anion Gap 15.5 H (6.8-13.8) mmol/L BUN 55 H (3-23) mg/dL Creatinine 2.77 H D (0.4-1.4) mg/dL Est GFR (Non-Af Amer) 18 L (60-130) mL/min Random Glucose 240 H D (70-110) mg/dL - Exam Constitutional: Present: Alert, Oriented x3, Cooperative ENT Exam: Present: hearing grossly normal Respiratory: Present: lungs clear, normal breath sounds Cardiovascular/Chest: Present: regular rate, rhythm, no murmur Abdomen: Present: Normal bowel sounds, soft, nontender, nondistended Skin Exam: Present: normal color, warm/dry, no cyanosis Appearance: Present: appropriate appearance, appropriate insight Assessment/Plan Plan Narrative: Urine culture positive, awaiting sensitivities. Continue antibiotics. - Problems/Diagnosis (1) UTI (urinary tract infection) Problem: Acute Qualifiers: Urinary tract infection type: site unspecified Hematuria presence: with hematuria Qualified Code(s): N39.0 - Urinary tract infection, site not specified (2) Altered mental status, unspecified Problem: Resolved
[2018-07-27] MEDS: NORMAL SALINE 1,000 ML IV PRN ×3 (04:08→21:02)
[2018-07-27] MEDS: LEVOTHYROXINE SODIUM 50 MCG TABLET PO SCH (07:35)
[2018-07-27] MEDS: PANTOPRAZOLE SODIUM 20 MG TABLET.DR PO SCH (07:35)
[2018-07-27] MEDS: INSULIN LISPRO 100 UNITS/ML VIAL SC SCH ×4 (08:31→20:03)
[2018-07-27] MEDS: INSULIN GLARGINE,HUM.REC.ANLOG 100 UNITS/ML VIAL SC SCH ×2 (08:33→20:04)
[2018-07-27] MEDS: DULoxetine HCL 30 MG CAPSULE.SA PO SCH (08:35)
[2018-07-27] MEDS: LOSARTAN POTASSIUM 50 MG TABLET PO SCH (08:35)
[2018-07-27] MEDS: OLANZapine 5 MG TABLET PO SCH (08:38)
[2018-07-27] MEDS: TOPIRAMATE 50 MG TABLET PO SCH ×2 (08:38→20:05)
[2018-07-27] MEDS: OXYBUTYNIN CHLORIDE 5 MG TABLET PO SCH ×2 (08:38→20:02)
[2018-07-27] MEDS ORDERED: VANCOMYCIN HCL LEVEL XX ONE (11:30)
[2018-07-27 12:02] LABS: Hematocrit 35.3 % (37.0-47.0); Hemoglobin 10.9 gm/dL (12.5-16.0); Mean Cell Volume 91.7 fl (78-100); Mean Corpuscular Hemoglobin 28.3 pg (27-31); Mean Corpuscular Hgb Conc 30.9 g/dl (32-36); Mean Platelet Volume 10.7 fl (8-12.5); Neutrophil # 6.4 K/mm3 (1.3-6.0); Neutrophil % 78.4 % (42-75.0); Platelet Count 318 K/mm3 (150-450); Red Blood Count 3.85 M/mm3 (4.2-5.4); Red Cell Distribution Width 13.7 % (11.5-14.0); White Blood Count 8.1 K/mm3 (4.0-10.5)
[2018-07-27 12:16] LABS: Albumin * 2.3 gm/dl (3.4-5.0); Anion Gap 15.8 mmol/L (6.8-13.8); BUN/Creatinine Ratio 20.2 (9.0-21.6); Bilirubin, Total 0.3 mg/dL (0.0-1.1); Ca. Corrected For Albumin 10.7 mg/dL (8.4-10.2); Calcium * 9.7 mg/dL (7.9-10.9); Carbon Dioxide 17.1 mmol/L (24-32.6); Potassium 4.9 mmol/L (3.4-4.6); Total Protein 7.4 gm/dL (6.2-8.2)
[2018-07-27] MEDS: VANCOMYCIN HCL 500 MG in DEXTROSE 5 % IN WATER 100 ML IV SCH ×2 (12:30)
[2018-07-27] MEDS: VANCOMYCIN HCL 750 MG in DEXTROSE 5 % IN WATER 250 ML IV SCH ×2 (12:32)
[2018-07-27] MEDS ORDERED: NYSTATIN 15 APPL BTL TP ONE (19:53)
[2018-07-27] MEDS: FLUTICASONE PROPIONATE 120 SPRAY INHALER NS SCH (20:02)
[2018-07-27] MEDS: NYSTATIN 15 APPL BTL TP SCH (20:05)
--- NOTE | 2018-07-27 23:57 | PN ---
Subjective - Date and Time Seen Date: 07/27/18 Time: 12:30 Subjective Narrative: Continues to feel better. No fever, chills, nausea, or vomiting. Objective - Vitals Vitals: Last Vital Signs Temp 36.4 C 07/27/18 22:00 Pulse 86 07/27/18 22:00 Resp 24 H 07/27/18 22:00 BP 152/85 H 07/27/18 22:00 Pulse Ox 99 07/27/18 22:00 - Abnormal Lab Findings Abnormal Lab Findings: Abnormal Lab Results 07/27/18 07/27/18 Range/Units 11:52 11:52 RBC 3.85 L (4.2-5.4) M/mm3 Hgb 10.9 L (12.5-16.0) gm/dL Hct 35.3 L (37.0-47.0) % MCHC 30.9 L (32-36) g/dl Immature Gran % (Auto) 1.60 H (0.001-0.429) % Immature Gran # (Auto) 0.13 H (0.000-0.0310) K/mm3 Neutrophils % 78.4 H (42-75.0) % Lymphocytes % 9.5 L (20-51) % Eosinophils % 4.2 H (0.0-3.0) % Neutrophils # 6.4 H (1.3-6.0) K/mm3 Lymphocytes # 0.77 L (1.5-3.5) k/mm3 Potassium 4.9 H (3.4-4.6) mmol/L Carbon Dioxide 17.1 L (24-32.6) mmol/L Anion Gap 15.8 H (6.8-13.8) mmol/L BUN 50 H (3-23) mg/dL Creatinine 2.48 H (0.4-1.4) mg/dL Est GFR (Non-Af Amer) 21 L (60-130) mL/min Random Glucose 209 H (70-110) mg/dL Calcium Adj for Albumin 10.7 H (8.4-10.2) mg/dL ALT 18 L (19-67) U/L Albumin 2.3 L (3.4-5.0) gm/dl - Exam Constitutional: Present: Alert, Oriented x3, Cooperative Respiratory: Present: lungs clear, normal breath sounds, no respiratory distress Cardiovascular/Chest: Present: regular rate, rhythm, no murmur Abdomen: Present: Normal bowel sounds, soft, nontender, nondistended Skin Exam: Present: normal color, warm/dry, no cyanosis Neurologic: Present: no motor/sensory deficits, alert, normal mood/affect Appearance: Present: appropriate appearance, appropriate insight Assessment/Plan Plan Narrative: Continue antibiotics, she continues to improve daily. Awaiting sensitivities. - Problems/Diagnosis (1) UTI (urinary tract infection) Problem: Acute Qualifiers: Urinary tract infection type: site unspecified Hematuria presence: with hematuria Qualified Code(s): N39.0 - Urinary tract infection, site not specified
[2018-07-28] MEDS: INSULIN LISPRO 100 UNITS/ML VIAL SC SCH ×4 (07:19→22:43)
[2018-07-28] MEDS: PANTOPRAZOLE SODIUM 20 MG TABLET.DR PO SCH (07:20)
[2018-07-28] MEDS: LEVOTHYROXINE SODIUM 50 MCG TABLET PO SCH (07:20)
[2018-07-28] MEDS: LOSARTAN POTASSIUM 50 MG TABLET PO SCH (08:11)
[2018-07-28] MEDS: INSULIN GLARGINE,HUM.REC.ANLOG 100 UNITS/ML VIAL SC SCH ×2 (08:11→22:41)
[2018-07-28] MEDS: OXYBUTYNIN CHLORIDE 5 MG TABLET PO SCH ×2 (08:11→22:35)
[2018-07-28] MEDS: DULoxetine HCL 30 MG CAPSULE.SA PO SCH (08:11)
[2018-07-28] MEDS: TOPIRAMATE 50 MG TABLET PO SCH ×2 (08:11→22:35)
[2018-07-28] MEDS: OLANZapine 5 MG TABLET PO SCH (08:12)
[2018-07-28] MEDS: NYSTATIN 15 APPL BTL TP SCH ×2 (08:12→22:36)
[2018-07-28] MEDS: VANCOMYCIN HCL 750 MG in DEXTROSE 5 % IN WATER 250 ML IV SCH ×2 (12:17)
[2018-07-28 13:37] LABS: Anion Gap 16.1 mmol/L (6.8-13.8); BUN/Creatinine Ratio 19.8 (9.0-21.6); Calcium * 9.5 mg/dL (7.9-10.9); Carbon Dioxide 17.2 mmol/L (24-32.6); Estimated Creat Clear 14.3; Potassium 4.3 mmol/L (3.4-4.6)
[2018-07-28 13:58] LABS: Hematocrit 37.8 % (37.0-47.0); Hemoglobin 11.7 gm/dL (12.5-16.0); Mean Cell Volume 92.2 fl (78-100); Mean Corpuscular Hemoglobin 28.5 pg (27-31); Mean Platelet Volume 10.6 fl (8-12.5); Neutrophil # 8.8 K/mm3 (1.3-6.0); Neutrophil % 79.3 % (42-75.0); Platelet Count 335 K/mm3 (150-450); Red Cell Distribution Width 13.5 % (11.5-14.0)
--- NOTE | 2018-07-28 17:12 | PN ---
Subjective - Date and Time Seen Date: 07/28/18 Time: 17:12 Subjective Narrative: Overall patient feeling much better today than when I saw her last week. No acute events overnight. Vital signs are stable. She is much more lucid and conversive. She denies abdominal pain, urgency or frequency. She denies any pain with her sores on her backside. Clinically stable and improving. Objective - Review of Systems Generalized/Overall Review: Denies: Weakness, Chills, Fever EENTM: Reports: No Symptoms Reported Respiratory: Denies: Cough, Shortness of Breath Cardiac: Denies: Chest Pain, Edema, Palpitations Abdominal: Denies: Nausea, Vomiting Genitourinary Symptoms: Denies: Burning, Itching, Urgency, Frequency Musculoskeletal Complaints: Reports: No Symptoms Reported Neurological: Reports: No Symptoms Reported - Vitals Vitals: Last Vital Signs Temp 37.0 C 07/28/18 10:07 Pulse 95 07/28/18 15:16 Resp 20 07/28/18 15:16 BP 142/96 H 07/28/18 15:16 Pulse Ox 98 07/28/18 15:16 - Abnormal Lab Findings Abnormal Lab Findings: Abnormal Lab Results 07/28/18 07/28/18 Range/Units 12:28 13:41 WBC 11.0 H D (4.0-10.5) K/mm3 RBC 4.10 L (4.2-5.4) M/mm3 Hgb 11.7 L (12.5-16.0) gm/dL MCHC 31.0 L (32-36) g/dl Immature Gran % (Auto) 3.30 H (0.001-0.429) % Immature Gran # (Auto) 0.36 H (0.000-0.0310) K/mm3 Neutrophils % 79.3 H (42-75.0) % Lymphocytes % 8.0 L (20-51) % Eosinophils % 3.2 H (0.0-3.0) % Neutrophils # 8.8 H (1.3-6.0) K/mm3 Lymphocytes # 0.88 L (1.5-3.5) k/mm3 Chloride 109 H (97-106) mmol/L Carbon Dioxide 17.2 L (24-32.6) mmol/L Anion Gap 16.1 H (6.8-13.8) mmol/L BUN 53 H (3-23) mg/dL Creatinine 2.68 H (0.4-1.4) mg/dL Est GFR (Non-Af Amer) 19 L (60-130) mL/min Random Glucose 130 H D (70-110) mg/dL - Exam Constitutional: Present: Alert, Oriented x3, Morbidly obese ENT Exam: Present: hearing grossly normal. Absent: nasal congestion, nasal drainage Neck: Present: non-tender, supple Breasts: Present: Exam deferred Respiratory: Present: lungs clear, normal breath sounds, other - Distant breath sounds due to body habitus Abdomen: Present: soft, nontender /Rectal: Present: Exam deferred Skin Exam: Present: other - Decubitus ulcers covered along left gluteus and superior posterior thigh, bandages clean dry and intact Neurologic: Present: alert, oriented x 3 Appearance: Present: disheveled, impaired insight Eye contact: Present: cooperative, good eye contact Thoughts: Present: normal mood /affect Assessment/Plan Plan Narrative: Decubitus ulcers currently being treated with vancomycin. Being monitored by pharmacy, bank trough appropriate. No changes to antibiotic regimen at this time. Wound care consulted. Will likely stop vancomycin tomorrow prior to being discharged. [facility] to continue treatment for her skin infection. Patient's urine did speciate and grew out Proteus which was sensitive to the Rocephin which she received for 7 days. UTI should have been adequately covered. Likely home tomorrow on clindamycin. Blood sugars fairly well controlled. Continue to monitor sugars before meals at bedtime. Will adjust long-acting insulin in accordance with the amount of short acting that was given to her today. Recheck kidney function as it is slowly improving even with vancomycin use. GFR at 19, improved from 13 upon admission. Creatinine is also coming down though it did increase overnight. We will continue to monitor, patient will likely need to be referred to nephrology but both patient and mom are unsure if she wants to go through dialysis (if needed), it is to being considered at this time. Have discussed this with her mom, no definitive treatment options have been decided upon. We will recheck BMP in the morning Dementia appears to be stable, patient is alert and oriented x3 today. Patient in a good mood and easy to talk to continue consistent carb diet. SCDs for DVT prophylaxis. The nurse to call any questions or concerns. 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 Problem: Chronic (2) Altered mental status, unspecified Problem: Resolved (3) Diabetic neuropathy Problem: Chronic Qualifiers: Diabetes mellitus type: type 2 Diabetes mellitus complication detail: diabetic polyneuropathy Qualified Code(s): E11.42 - Type 2 diabetes mellitus with diabetic polyneuropathy (4) Diabetes Problem: Chronic Qualifiers: Diabetes mellitus type: type 2 Diabetes mellitus bin filler insulin use: with skilled nursing use Diabetes mellitus complication status: with skin complications Diabetes mellitus complication detail: with other skin ulcer Qualified Code(s): E11.622 - Type 2 diabetes mellitus with other skin ulcer; 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
[2018-07-28] MEDS: FLUTICASONE PROPIONATE 120 SPRAY INHALER NS SCH (22:34)
[2018-07-29] MEDS: INSULIN LISPRO 100 UNITS/ML VIAL SC SCH ×2 (07:29→11:36)
[2018-07-29] MEDS: PANTOPRAZOLE SODIUM 20 MG TABLET.DR PO SCH (07:30)
[2018-07-29] MEDS: LEVOTHYROXINE SODIUM 50 MCG TABLET PO SCH (07:30)
[2018-07-29] MEDS: OLANZapine 5 MG TABLET PO SCH (08:30)
[2018-07-29] MEDS: DULoxetine HCL 30 MG CAPSULE.SA PO SCH (08:30)
[2018-07-29] MEDS: OXYBUTYNIN CHLORIDE 5 MG TABLET PO SCH (08:31)
[2018-07-29] MEDS: TOPIRAMATE 50 MG TABLET PO SCH (08:31)
[2018-07-29] MEDS: NYSTATIN 15 APPL BTL TP SCH (08:31)
[2018-07-29] MEDS: LOSARTAN POTASSIUM 50 MG TABLET PO SCH (08:31)
[2018-07-29] MEDS ORDERED: INSULIN GLARGINE,HUM.REC.ANLOG 100 UNITS/ML VIAL SC SCH (09:00)
[2018-07-29] MEDS ORDERED: POTASSIUM CHLORIDE 20 MEQ TABLET.SA PO SCH (09:00)
--- NOTE | 2018-07-29 11:17 | DS ---
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 Problem: Chronic (2) Altered mental status, unspecified Problem: Resolved (3) Diabetic neuropathy Problem: Chronic Qualifiers: Diabetes mellitus type: type 2 Diabetes mellitus complication detail: diabetic polyneuropathy Qualified Code(s): E11.42 - Type 2 diabetes mellitus with diabetic polyneuropathy (4) Diabetes Problem: Chronic Qualifiers: Diabetes mellitus type: type 2 Diabetes mellitus fci insulin use: with fci use Diabetes mellitus complication status: with skin complications Diabetes mellitus complication detail: with other skin ulcer Qualified Code(s): E11.622 - Type 2 diabetes mellitus with other skin ulcer; Z79.4 - retirement (current) use of insulin (5) UTI (urinary tract infection) Problem: Acute (6) Acute kidney injury superimposed on chronic kidney disease Problem: Acute (7) Stage 4 chronic kidney disease Problem: Acute Description of Stay: 67-year-old female presented to the hospital with worsening altered mental status on top of her chronic dementia. She was found to have a UTI that was sensitive to Rocephin which she was on for 7 days. Altered mental status resolved and patient was back to baseline dementia and ready return home. Of note she was also found to have 2 stage II decubitus pressure ulcers- (1) on her left gluteal cleft as well as (1) on her superior posterior thigh which is being treated by wound care. She had been on vancomycin for this for 7 days. She will be sent home on another 3 days of oral clindamycin. This is a chronic issue for her I do not think was playing a part in her mentation. Of note her kidney function had decreased from stage IV to stage V kidney disease while here. GFR slowly began to improve with gentle fluid resuscitation and treatment of her UTI. She will need a BMP to recheck GFR in the next couple of days to make sure that it is continuing to improve. If not she and the family are trying to decide on whether they want to have a nephrology consult to determine whether or not she will need dialysis at some point as she has a diabetic with a GFR of less than 15. This is something that they will need to consider but they were not ready to make this decision at this time. Patient's vital signs are stable during her stay here, no changes to those chronic medications. Her long-acting insulin was adjusted to 55 units twice daily which helped control her sugars better. Overall she did well from the standpoint. Advised to follow-up with her PCP in the next week to follow-up on kidney function and discuss whether or not dialysis is the next step for them or not. Procedures Performed: none Results and Findings: Lab Pending Results 07/23/18 17:45: WBC 13.8 H, RBC 4.20, Hgb 12.1 L, Hct 38.8, MCV 92.4, MCH 28.8, MCHC 31.2 L, RDW 14.0, Plt Count 289, MPV 10.9, Immature Gran % (Auto) 0.50 H, Immature Gran # (Auto) 0.07 H, Neutrophils % 94.3 H, Lymphocytes % 1.7 L, Monocytes % 3.1, Eosinophils % 0.1, Basophils % 0.3, Nucleated RBC % 0.0, Neutrophils # 13.0 H, Lymphocytes # 0.23 L, Monocytes # 0.4, Eosinophils # 0.0, Absolute Basophils 0.0 07/23/18 17:45: Sodium 134, Plasma Sodium 135, Potassium 4.6 D, Chloride 101, Carbon Dioxide 19.4 L, Anion Gap 18.2 H, BUN 72 H D, Creatinine 3.78 H D, Est GFR (Non-Af Amer) 13 L D, BUN/Creatinine Ratio 19.0, Random Glucose 187 H, Calcium 9.6, Calcium Adj for Albumin 10.5 H, Total Bilirubin 0.9, AST 15, ALT 17 L, Alkaline Phosphatase 84, C-Reactive Prot, Quant 34.7 H, Total Protein 7.9, Albumin 2.5 L 07/23/18 17:45: Lactic Acid, Venous 1.3 07/23/18 17:45: Procalcitonin 7.09 H 07/23/18 20:01: Urine Color Yellow, Urine Appearance Clear, Urine pH 6.5, Ur Specific [place] 1.015, Urine Protein >=300 H, Urine Glucose (UA) Negative, Urine Ketones Negative, Urine Blood 250 H, Urine Nitrate Negative, Urine Bilirubin Negative, Prot Sulfosalicylic Acd 4+ H, Urine Urobilinogen Normal, Ur Leukocyte Esterase 100 H, Urine RBC 10-25 H, Urine WBC 5-10 H, Ur Epithelial Cells 0-5, Urine Bacteria 2+ H, Urine Mucus Moderate - 2+ H, Urine Culture Comments Culture to follow 07/24/18 09:55: WBC 8.7 D, RBC 3.70 L, Hgb 10.7 L, Hct 34.0 L, MCV 91.9, MCH 28.9, MCHC 31.5 L, RDW 14.0, Plt Count 251, MPV 11.0, Immature Gran % (Auto) 0.70 H, Immature Gran # (Auto) 0.06 H, Neutrophils % 88.8 H, Lymphocytes % 4.3 L, Monocytes % 5.3, Eosinophils % 0.7, Basophils % 0.2, Nucleated RBC % 0.0, Neutrophils # 7.8 H, Lymphocytes # 0.38 L, Monocytes # 0.5, Eosinophils # 0.1, Absolute Basophils 0.0 07/24/18 09:55: Sodium 133, Plasma Sodium 137, Potassium 4.6, Chloride 103, Carbon Dioxide 16.1 L, Anion Gap 18.5 H, BUN 69 H, Creatinine 3.70 H, Est GFR (Non-Af Amer) 13 L, BUN/Creatinine Ratio 18.6, Random Glucose 340 H D, Calcium 8.8 07/24/18 18:36: Sodium 133, Plasma Sodium 136, Potassium 4.1, Chloride 102, Carbon Dioxide 17.9 L, Anion Gap 17.2 H, BUN 62 H, Creatinine 3.51 H, Est GFR (Non-Af Amer) 14 L, BUN/Creatinine Ratio 17.7, Random Glucose 258 H, Calcium 9.1 07/25/18 05:20: Sodium 138, Plasma Sodium 139, Potassium 4.0, Chloride 107 H, Carbon Dioxide 16.3 L, Anion Gap 18.7 H, BUN 59 H, Creatinine 3.24 H, Est GFR (Non-Af Amer) 15 L, BUN/Creatinine Ratio 18.2, Random Glucose 179 H D, Calcium 9.2 07/26/18 06:10: Sodium 137, Plasma Sodium 139, Potassium 4.4, Chloride 108 H, Carbon Dioxide 17.9 L, Anion Gap 15.5 H, BUN 55 H, Creatinine 2.77 H D, Est GFR (Non-Af Amer) 18 L, BUN/Creatinine Ratio 19.9, Random Glucose 240 H D, Calcium 9.4 07/27/18 11:52: Sodium 134, Plasma Sodium 136, Potassium 4.9 H, Chloride 106, Carbon Dioxide 17.1 L, Anion Gap 15.8 H, BUN 50 H, Creatinine 2.48 H, Est GFR (Non-Af Amer) 21 L, BUN/Creatinine Ratio 20.2, Random Glucose 209 H, Calcium 9.7, Calcium Adj for Albumin 10.7 H, Total Bilirubin 0.3, AST 14, ALT 18 L, Alkaline Phosphatase 94, Total Protein 7.4, Albumin 2.3 L, Vancomycin Trough 11.0 07/27/18 11:52: WBC 8.1, RBC 3.85 L, Hgb 10.9 L, Hct 35.3 L, MCV 91.7, MCH 28.3, MCHC 30.9 L, RDW 13.7, Plt Count 318, MPV 10.7, Immature Gran % (Auto) 1.60 H, Immature Gran # (Auto) 0.13 H, Neutrophils % 78.4 H, Lymphocytes % 9.5 L, Monocytes % 5.9, Eosinophils % 4.2 H, Basophils % 0.4, Nucleated RBC % 0.0, Neutrophils # 6.4 H, Lymphocytes # 0.77 L, Monocytes # 0.5, Eosinophils # 0.3, Absolute Basophils 0.0 07/28/18 12:28: Sodium 138, Plasma Sodium 138, Potassium 4.3, Chloride 109 H, Carbon Dioxide 17.2 L, Anion Gap 16.1 H, BUN 53 H, Creatinine 2.68 H, Est GFR (Non-Af Amer) 19 L, BUN/Creatinine Ratio 19.8, Random Glucose 130 H D, Calcium 9.5 07/28/18 13:41: WBC 11.0 H D, RBC 4.10 L, Hgb 11.7 L, Hct 37.8, MCV 92.2, MCH 28.5, MCHC 31.0 L, RDW 13.5, Plt Count 335, MPV 10.6, Immature Gran % (Auto) 3.30 H, Immature Gran # (Auto) 0.36 H, Neutrophils % 79.3 H, Lymphocytes % 8.0 L, Monocytes % 5.7, Eosinophils % 3.2 H, Basophils % 0.5, Nucleated RBC % 0.0, Neutrophils # 8.8 H, Lymphocytes # 0.88 L, Monocytes # 0.6, Eosinophils # 0.4, Absolute Basophils 0.1 Discharge Location: [facility] Disposition: SNF Condition: Serious Discharge Activity: Activity as tolerated Discharge Diet: Consistent carbs Fci Therapy: Physicial Therapy, Occupation Therapy Referrals: Ulisses Capellan DO [Primary Care Provider] - One Week Additional Patient Instructions (free text): Pt is [facility] resident, please call and fax discharge orders to them. Recommend Aquacel Ag, covered with gauze and secured with medipore tape. This will be changed daily, and as needed due to bowel movements. Wash with soap and water at dressing changes. Continue with excellent off-loading of the area. Prescriptions (Any new or edited meds): Clindamycin HCl [Cleocin HCl] 300 mg PO TID #9 cap Complete Home Medications List: Complete Home Medication List: acetaminophen 325 mg tablet See Rx Instructions PO .COMPLEX 10/03/17 ascorbic acid (vitamin C) 500 mg tablet 500 mg PO .COMPLEX 10/03/17 blood sugar diagnostic strips See Dose Instructions .ROUTE .MEDSUPPLY #20 ea 10/03/17 cholecalciferol (vitamin D3) 5,000 unit capsule 5,000 unit PO BID cap 10/03/17 duloxetine 30 mg capsule,delayed release See Rx Instructions PO .COMPLEX 10/03/17 fenofibrate 160 mg tablet 160 mg PO DAILY 10/03/17 fluconazole 200 mg tablet 200 mg PO .COMPLEX 10/03/17 insulin aspart U-100 100 unit/mL subcutaneous solution See Rx Instructions SUB-Q .COMPLEX 10/03/17 insulin glargine (U-100) 100 unit/mL (3 mL) subcutaneous pen See Rx Instructions SUB-Q .COMPLEX 10/03/17 levothyroxine 50 mcg tablet 50 mcg PO DAILY 10/03/17 nutritional therapy glucose intolerance,lactose-free,soy oral liquid See Rx Instructions PO .COMPLEX 10/03/17 olanzapine 7.5 mg tablet 7.5 mg PO .COMPLEX 10/03/17 omeprazole 20 mg capsule,delayed release 20 mg PO DAILY 10/03/17 oxybutynin chloride ER 5 mg tablet,extended release 24 hr 5 mg PO DAILY 10/03/17 simvastatin 20 mg tablet 20 mg PO QPM 10/03/17 topiramate 50 mg tablet 50 mg PO BID 10/03/17 levofloxacin 500 mg tablet 500 mg PO DAILY #10 tab 01/17/18 losartan 25 mg tablet 25 mg PO DAILY #30 tab 05/15/18 potassium chloride ER 20 mEq tablet,extended release 20 meq PO DAILY #30 tab 07/02/18 Clindamycin HCl [Cleocin HCl] 300 mg PO TID #9 cap 07/29/18
[2018-07-29] MEDS: VANCOMYCIN HCL 750 MG in DEXTROSE 5 % IN WATER 250 ML IV SCH ×2 (11:36)
[2018-07-29] MEDS ORDERED: ACETAMINOPHEN 500 MG TABLET PO ONE (13:57)
[2018-07-29 15:04] VITALS: BP 139/82
[2018-07-29] MEDS ORDERED: SIMVASTATIN 20 MG TABLET PO SCH (17:00)
== END 2018-07-29 15:15 | DRG 689 ==
LOC: ER 16:58 → MS 19:39
PROVIDERS: ADMIT Family Medicine; ATTEND Family Medicine
CPT/HCPCS: 36415; 71010; 71045; 80048; 80053; 80202; 81001; 83605; 84145; 85025; 86140; 87040; 87081; 87086; 93005; 96361; 96365; 99284